=== PATIENT | male | born 2005 | race African-American/Black ===

== ENCOUNTER 2025-06-19 18:10 | Emergency (ER) | payer OTHER, SELFPAY ==
[2025-06-19 18:12] VITALS: BP 153/89
--- NOTE | 2025-06-19 19:02 | ED.GENMED ---
History of Present Illness
General
Chief Complaint: Skin Problem
Time Seen by Provider: 06/19/25 18:55
Nursing documentation reviewed up to this point in time: agreed with
History of Present Illness
History of Present Illness:
20-year-old male presents to the ER for evaluation of multiple concerns. 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 He had immediate pain and has
had some residual discomfort since this time. He had a subsequent repeat strike to his scrotum 3 days after the initial injury, no further injury since. Patient denies hematuria. He denies any urinary difficulty. No difficulty moving his bowels.
Patient is also concerned because he was having pain in his left heel mainly when he runs and play soccer. He admits that his shoes had been wearing out and there was a hole in the base of his shoe. He did replace the insoles without improvement
in his pain. He subsequently got a new pair of cleats but still has pain in his left heel when he runs. He is also concerned because he has a blister that appears to have blood in it at the base of the right great toe. He states that several
years ago he had dislocated his toe and had subsequent fusion surgery. He denies any significant pain with the toe. He has chronic limited mobility of the toe since his procedure. He denies any direct injury or trauma to his toe per se. He had
surgery in [place] and has not seen a handtools repairer since he moved to the area. He has not tried any [id number] remedies for any of his issues.
Review of Systems
Review of Systems
Allergies reviewed?: Yes
Phy Exam
Physical Exam
Physical Exam:
Patient is awake, alert, appears in no acute distress, genital exam performed with christian science healer present at bedside, patient is circumcised, no penile discharge, no penile lesions, scrotum appears normal, testicles are in normal lie with positive
cremasteric reflex, I do not palpate any lesions, masses or any tenderness on exam, no pain on palpation bilateral lower legs, ankles, or feet, skin overlying left foot appears within normal limits, no deformity, patient does have flatfeet left
greater than right, right great toe has a thick callus with old appearing blood present along the interdigital plantar skin fold, brisk cap refill present to all toes, 2+ DP pulses present symmetric, GCS is 15.
Course
Orders/Labs/Results
Orders:
Orders
06/19/25 19:00
US Scrotum Urgent
Comment:
Reason For Exam: testicular pain, h/o trauma
06/19/25 19:01
CR Foot - Left Min 3 Views Urgent
Comment:
Reason For Exam: heel pain
Toes 2 Views, Right [CR Toe(s) Min 2 Vw Right] Urgent
Comment: prior fusion s/p dislocation
Reason For Exam: pain
Indicate Which Toe:: Great
06/19/25 19:22
Urinalysis Urgent
Date Specimen was Collected: 06/19/25
Time Specimen was Collected: 19:11
Urine Microscopic Urgent
Date Specimen was Collected: 06/19/25
Time Specimen was Collected: 19:11
Chlamydia/GC by PCR Urgent
LIZ Source: Urine
Specimen Description:
Source:: URINE
Date Specimen was Collected: 06/19/25
Time Specimen was Collected: 19:11
Abnormal Lab Results
06/19/25
19:22
Urine Bacteria Moderate A
(Negative)
Urine Albumin 2+ A
(Neg - Trace)
Vital Signs
Initial and Last Documented VS:
Initial Vital Signs
Temp Pulse Resp BP Pulse Ox
98.0 F 82 18 153/89 99
06/19/25 18:12 06/19/25 18:12 06/19/25 18:12 06/19/25 18:12 06/19/25 18:12
Last Documented Vital Signs
Temp Pulse Resp BP Pulse Ox
98.0 F 82 18 153/89 99
06/19/25 18:12 06/19/25 18:12 06/19/25 18:12 06/19/25 18:12 06/19/25 19:09
MDM/Problems Addressed
Differential Diagnosis Includes:
Differential diagnosis to consider but not limited to scrotal hematoma, testicular injury, torsion, stress fracture to bilateral feet, sprain, strain along with other etiologies considered
Chronic conditions affecting care:
Previous right great toe surgery, otherwise no previous medical history
*Radiology
Radiology exam reviewed: preliminary read by ED provider (I independently viewed and interpreted x-ray of the left foot as normal, no fracture. I independently viewed and interpreted x-rays of the right great toe showing extensive degenerative
change at the interphalangeal joint) and radiology read reviewed (Scrotal ultrasound:IMPRESSION: No findings to suggest testicular torsion or testicular laceration. Tiny bilateral epididymal head cysts.)
*Pulse Oximetry
SaO2: 99
Oxygen Mode of Delivery: Room air
Patient hypoxic: no
*Critical Care Note
Total Time (30-74mins, 75-104mins- exclusive of procedures): Not Applicable
Update Note
Update Note:
Will obtain scrotal ultrasound in addition to x-rays of bilateral feet. Will also provide patient with outpatient referral to podiatry. Will reassess.
Patient resting in no acute distress. He declined analgesia while in the emergency department. Once all test results available, I reached out to on-call podiatry, Dr. Moreno, to review extensive degenerative change seen at the great toe. I also
shared with him physical again exam findings. 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
still having persistent testicular pain. GC and Chlamydia are still pending at the current time-urinalysis does not appear consistent with urinary tract infection. Patient feels comfortable plan for discharge and has no questions at the current
time. Prescription for ibuprofen is sent for as needed use at home
2045: I reviewed full discharge instructions with patient and significant other present at bedside. Significant other also called the patient's mother and I reviewed discharge information with her also. She has no additional questions at the
current time
ED Attending Note
-
Portions of this chart may have been created with voice recognition software.� Occasional wrong word or��sound alike� substitutions may have occurred due to the inherent limitations of voice recognition software.
Discharge Plan
Departure
Patient Disposition: Home (Routine Discharge)
Date of Disposition: 06/19/25
Time of Disposition: 20:38
Patient with high blood pressure during this ER visit?: No
Discharge Problem:
Heel pain, Pain in scrotum, Great toe pain
Instructions: Managing acute pain at home
Prescriptions:
New
ibuprofen 600 mg tablet
600 mg PO Q8H PRN (Reason: Pain) Qty: 20 0RF
Referrals:
Bunny Moreno DPM [Active, Podiatry] - Next open appointment
Discharge Problem: Heel pain; Great toe pain
Mariela Norris MD [Active, Urology] - Next open appointment
Discharge Problem: Pain in scrotum
Activity Restrictions/Additional Instructions:
Please contact podiatry office in the morning to schedule appointment for reevaluation and further care. Please also contact urology office to schedule appointment for reevaluation and further care. Please use ibuprofen as prescribed as needed for
discomfort. When you are not walking, please fold a washcloth and elevate your scrotum in order to help with your scrotal discomfort. Return to the ER for any concerns
Interventions
Interventions:
*General Assessment Last Done: 06/19/25 18:12
[facility] Risk Assessment Tool Last Done: 06/19/25 19:51
ED-Skin Assessment Last Done: 06/19/25 19:48
Discharge Date and Time
Print Language: EMIRATI
[2025-06-19 19:28] LABS: Urine Character Cloudy (Clear)
[2025-06-19 19:38] LABS: Urine Red Blood Cell 0-2 /HPF (0-2); Urine Squamous Cell 0-2 /LPF (Few); Urine White Cell 0-2 /HPF (0-5)
[2025-06-19 20:48] VITALS: BP 133/83
== END 2025-06-19 20:49 | disposition home or self-care (01) ==
LOC: EMR 18:10
PROVIDERS: EMERGENCY PHYSICIAN Emergency Medicine
DX: N50.82 Scrotal pain (principal); M79.672 Pain in left foot; M79.675 Pain in left toe(s)
CPT/HCPCS: 99284; 73630; 73660; 76870; 81003; 81015; 87491; 87591; 93976